=== PATIENT | male | born 1960 | race Caucasian/White ===

== ENCOUNTER 2023-05-02 14:53 | Emergency (ER) | payer OTHER ==
[~2023-05-02] VITALS: Ht 180.3 cm; Wt 90.7 kg
[2023-05-02] MEDS ORDERED: CYCLOBENZAPRINE10 MG PO (15:56)
== END 2023-05-02 16:48 | disposition home or self-care (01) ==
LOC: ED 14:53
DX: S39.012A Strain of muscle, fascia and tendon of lower back, initial encounter (principal); X50.0XXA Overexertion from strenuous movement or load, initial encounter; Y93.89 Activity, other specified; Y92.239 Unspecified place in hospital as the place of occurrence of the external cause; Y99.0 Civilian activity done for income or pay